=== PATIENT | female | born 1955 ===

== ENCOUNTER 2022-06-14 09:04 | Outpatient (CLI) | payer OTHER | END 2022-06-14 15:03 | disposition home or self-care (01) | LOC: LAB 09:04 | PROVIDERS: ATTEND Obstetrics & Gynecology Gynecologic Oncology | DX: Z01.810 Encounter for preprocedural cardiovascular examination (principal); Z01.811 Encounter for preprocedural respiratory examination; Z01.812 Encounter for preprocedural laboratory examination; N83.291 Other ovarian cyst, right side; D64.89 Other specified anemias; N39.0 Urinary tract infection, site not specified; Z20.822 Contact with and (suspected) exposure to COVID-19; R10.2 Pelvic and perineal pain ==

== ENCOUNTER 2022-06-22 09:30 | Inpatient (IN) | payer OTHER ==
[~2022-06-22] VITALS: Ht 147.3 cm; Wt 51.7 kg
[2022-06-22] MEDS ORDERED: ENALAPRIL MALEA10 MG PO (10:55)
[2022-06-22] MEDS ORDERED: NAMENDA XR7 MG PO (10:55)
[2022-06-22] MEDS ORDERED: SIMVASTATIN40 MG PO (10:56)
[2022-06-22] MEDS ORDERED: VAZALORE81 MG PO (10:57)
== END 2022-06-25 11:27 | disposition home or self-care (01) | DRG 743 ==
LOC: O/R 06-24 07:34 → OB/GYN 06-24 07:34 → SURG 06-24 09:30 → OB/GYN 06-24 17:12 → SURG 06-24 20:00 → OB/GYN 06-25 11:27
PROVIDERS: ADMIT Obstetrics & Gynecology Gynecologic Oncology; ATTEND Obstetrics & Gynecology Gynecologic Oncology
PROC: 0UT74ZZ Resection of Bilateral Fallopian Tubes, Percutaneous Endoscopic Approach (ICD-10-PCS; 2022-06-24)
PROC: 07BC4ZZ Excision of Pelvis Lymphatic, Percutaneous Endoscopic Approach (ICD-10-PCS; 2022-06-24)
PROC: 0UT24ZZ Resection of Bilateral Ovaries, Percutaneous Endoscopic Approach (ICD-10-PCS; 2022-06-24)
PROC: 0UT94ZZ Resection of Uterus, Percutaneous Endoscopic Approach (ICD-10-PCS; principal; 2022-06-24 20:00)
DX: D25.2 Subserosal leiomyoma of uterus (principal); N83.312 Acquired atrophy of left ovary; Z20.822 Contact with and (suspected) exposure to COVID-19; D27.0 Benign neoplasm of right ovary